=== PATIENT | female | born 1940 | race Caucasian/White ===

== ENCOUNTER → 2016-06-03 | Outpatient (CLI) | payer OTHER ==
[~2016-06-03] MED LIST: CALCTAB7 PO; CHOL20009 PO; CIPR-255 PO; HYDR-5688 PO; LEVO75TA5 PO; MULT-513 PO; OMEG12006 PO; ONDA4TAB7 SL; S-AD1TAB6 PO
--- NOTE | 2016-06-03 15:22 | MAMMOGRAPHY REPORT ---
BILATERAL DIGITAL SCREENING MAMMOGRAM WITH CAD: 06/03/2016 TECHNIQUE: Current study was also evaluated with a Computer Aided Detection (CAD) system. Bilatera l CC and MLO views were obtained. COMPARISON: Comparison is made to exams dated: 06/02/2015 mammogram, 05/22/2013 mammogram, 05/15/2012 m ammogram, 05/10/2011 mammogram, 05/29/2014 mammogram, and 05/04/2010 mammogram - [facility] enter. BREAST COMPOSITION: The tissue of both breasts is heterogeneously dense, which may obscure small ma sses. FINDINGS: No suspicious masses, calcifications, or areas of architectural distortion are noted in e ither breast. There has been no significant interval change compared to prior exams. Again noted ar e scattered coarse benign appearing calcifications, some of which are associated with benign-appeari ng masses and are consistent with benign degenerating fibroadenomas. Benign-appearing mass in the r ight lower inner quadrant is stable. IMPRESSION: ACR BI-RADS CATEGORY 2: BENIGN There is no mammographic evidence of malignancy. A 1 year screening mammogram is recommended. The p atient will receive written notification of the results. Approximately 10% of breast cancers are not detected with mammography. A negative mammographic repor t should not delay biopsy if a clinically suggestive mass is present. Yolis Mares M.D. ah/:06/03/2016 12:48:13 Software Reliability Engineer: Madiha DYER)(Cassie), [facility] letter sent: Normal 1/2 BI-RADS Code: ACR BI-RADS Category 2: Benign
== END | disposition home or self-care (01) ==
LOC: C.MAMM 08:57
PROVIDERS: ATTEND Family Medicine
DX: Z12.31 Encounter for screening mammogram for malignant neoplasm of breast (principal)

== ENCOUNTER → 2017-06-05 | Outpatient (CLI) | payer OTHER ==
--- NOTE | 2017-06-06 13:28 | MAMMOGRAPHY REPORT ---
BILATERAL DIGITAL SCREENING MAMMOGRAM TOMOSYNTHESIS WITH CAD: 06/05/2017 CLINICAL HISTORY: Routine screening examination. TECHNIQUE: Breast tomosynthesis in addition to standard 2D mammography was performed. Current study was also evaluated with a Computer Aided Detection (CAD) system. COMPARISON: Comparison is made to exams dated: 06/03/2016 mammogram, 06/02/2015 mammogram, 05/29/2014 dave mogram, 05/22/2013 mammogram, 05/15/2012 mammogram, and 05/10/2011 mammogram - [facility]. BREAST COMPOSITION: The tissue of both breasts is heterogeneously dense, which may obscure small mas ses. FINDINGS: There are bilateral benign masses, many of which have associated benign popcorn/coarse calc ification and most likely represent degenerating fibroadenomas. There are also stable groupings of b enign-appearing coarse heterogeneous calcifications in the breasts. No new suspicious mass, architec tural distortion or cluster of microcalcifications is seen. IMPRESSION: ACR BI-RADS CATEGORY 1: NEGATIVE There is no mammographic evidence of malignancy. A 1 year screening mammogram is recommended. The pa tient will receive written notification of the results. Approximately 10% of breast cancers are not detected with mammography. A negative mammographic report should not delay biopsy if a clinically suggestive mass is present. Safia Acuña M.D. ay/:06/05/2017 15:11:41 Grain Mixer: Iva DYER)(Cassie), [facility] letter sent: Normal 1/2 BI-RADS Code: ACR BI-RADS Category 1: Negative
== END | disposition home or self-care (01) ==
LOC: C.MAMM 09:06
PROVIDERS: ATTEND Family Medicine
DX: Z12.31 Encounter for screening mammogram for malignant neoplasm of breast (principal)

== ENCOUNTER → 2017-08-02 | Outpatient (CLI) | payer OTHER ==
--- NOTE | 2017-08-02 14:31 | DIAGNOSTIC IMAGING REPORT ---
LUMBAR SPINE RADIOGRAPHS, INCLUDING FLEXION AND EXTENSION CLINICAL HISTORY: Left sided sciatica. COMPARISON: Lumbar spine radiographs March 19, 2014. FINDINGS: Mild levoscoliosis of the lumbar spine has slightly increased since exam of March 19, 2014. There is moderate multilevel degenerative disc disease with disc space narrowing, osteophytosis and disc phenomenon. There is severe multilevel facet arthrosis. Slight retrolisthesis of T12 on L1 and L1 on L2 is noted with slight anterolisthesis of L5 on S1 which remains unchanged during flexion and extension. There is no evidence for instability on this exam. No fracture or suspicious lesion is present. There is apparent subchondral sclerosis within the left femoral head which raises the possibility of avascular necrosis. IMPRESSION: 1. No acute lumbar spine fracture or subluxation. 2. Mild levoscoliosis of the lumbar spine which has slightly increased since exam of March 19, 2014. 3. Moderate to severe multilevel degenerative disc disease and facet arthrosis. 4. No evidence for lumbar spine instability. 5. Possible avascular necrosis of the left femoral head. If persistent left hip pain, MRI could be obtained. Electronically signed by: Zay Fleming M.D. 08/02/2017 2:30 PM Dictated Date/Time: 08/02/2017 2:21 PM
== END | disposition home or self-care (01) ==
LOC: C.RAD 13:48
PROVIDERS: ATTEND Family Medicine
DX: M54.32 Sciatica, left side (principal); M51.36 Other intervertebral disc degeneration, lumbar region; M47.816 Spondylosis without myelopathy or radiculopathy, lumbar region

== ENCOUNTER → 2017-11-21 | Outpatient (CLI) | payer OTHER ==
[2017-11-21 09:53] LABS: BLOOD UREA NITROGEN 9 mg/dl (7-18); CREATININE 0.82 mg/dl (0.60-1.20)
--- NOTE | 2017-11-30 11:35 | CODING QUERY NO DIAGNOSIS ---
TREATMENT RENDERED WITHOUT A DIAGNOSIS To promote full compliance with coding requirements relating to patient care, physician participation is requested in all cases of reinforcing bar setter uncertainty. Please assist us with providing a diagnosis/symptom for the test(s) below: A diagnosis/symptom was not documented on your Order. A valid diagnosis/symptom is required to bill all insurances. Please remember that we are unable to code a diagnosis of rule out, probable, possible, questionable, or suspected. Tests that require a diagnosis: DOS: 11/21/17 (Attached order is missing diagnosis) * Blood Urea Nitrogen DIAGNOSIS: * Creatinine DIAGNOSIS: Provider Signature: Date: Thank you Scarlett Persaud Health Information Management Once completed, please kindly fax back to [phone] For questions please call [phone]
== END | disposition home or self-care (01) ==
LOC: C.LAB 07:33
PROVIDERS: ATTEND Family Medicine
DX: Z13.89 Encounter for screening for other disorder (principal)

== ENCOUNTER → 2017-11-24 | Outpatient (CLI) | payer OTHER ==
[~2017-11-24] MED LIST changes: +GADAVIST IV PRN
--- NOTE | 2017-11-24 11:21 | DIAGNOSTIC IMAGING REPORT ---
LUMBAR SPINE COMBINATION CLINICAL HISTORY: 77 years-old Female with LUMBAR DISC DISEASE. Acute low back pain with radiation into the left lower extremity. History of remote back surgery. COMPARISON: Lumbar spine radiographs 08/02/2017, CT abdomen and pelvis 05/16/2014. TECHNIQUE: Multiplanar, multi sequence MRI of the lumbar spine was performed both with and without the use of 6.5 mL Gadavist. FINDINGS: The large togps-jr-hugk boiler attendant localizer images demonstrate no gross abnormality. There is approximately 17 degrees levoscoliosis of the lumbar spine measured from L1-L4. No gross abnormality identified within the abdomen, pelvis or soft tissues on the large [id number]-hd-[id number] boiler attendant localizer images. No aortic aneurysm. No pathologically enlarged lymph nodes identified. A 1.8 cm T1 and T2 hyperintense lesion about the T11 vertebral body suggests hemangioma. There is no acute fracture, subluxation or significant focal bone marrow edema. Mild bone marrow edema is noted about the left pedicle at L5 which may be reactive. No sacral insufficiency fracture identified on this study. Multilevel intervertebral disc space narrowing with advanced facet arthropathy, ligamentum flavum thickening and annular disc bulging. No abnormal enhancement identified. T12-L1: Mild intervertebral disc space narrowing with spondylitic spurring and circumferential annular disc bulge. Moderate facet arthrosis. Flattening of the ventral thecal sac without significant central canal or foraminal narrowing as seen on the sagittal images alone. L1-L2: Moderate to severe intervertebral disc space narrowing with spondylitic spurring and circumferential annular disc bulge. Moderate facet arthrosis with ligamentum flavum thickening. There is flattening of the ventral thecal sac without significant central canal narrowing. There is moderate to severe right and mild to moderate left foraminal stenosis. L2-L3: Moderate intervertebral disc space narrowing with circumferential annular disc bulge, spondylitic spurring, moderate facet arthropathy with ligamentum flavum thickening. AP dimension of the thecal sac measures 8 mm. There is mild to moderate central canal, and moderate to severe right and mild to moderate left foraminal stenosis. L3-L4: Moderate intervertebral disc space narrowing with circumferential annular disc bulge, spondylitic spurring, moderate to severe facet arthropathy and ligamentum flavum thickening. Findings cause mild central canal, mild right and mild to moderate left foraminal stenosis. L4-L5: Severe intervertebral disc space narrowing with spondylitic spurring and circumferential annular disc bulge favoring the left foramen and far left lateral recess distribution. Severe facet arthropathy with ligamentum flavum thickening. Additionally, there is a suggested disc extrusion or sequestered disc fragment within the left lateral recess with mild adjacent peripheral enhancement as seen on image 24 series 10 which overall measures approximately 6 mm in craniocaudal dimension resulting in moderate to severe left lateral recess narrowing. This appears to abut the L5 nerve root. AP dimension of the thecal sac measures 4.5 mm. There is severe central canal and moderate bilateral foraminal narrowing. L5-S1: Moderate intervertebral disc space narrowing with spondylitic spurring and circumferential annular disc bulge. Advanced facet arthropathy with ligamentum flavum thickening. Flattening of the ventral thecal sac without significant central canal stenosis. There is moderate bilateral foraminal narrowing. IMPRESSION: 1. At L4-L5, circumferential annular disc bulge with severe facet arthropathy, spondylitic spurring and ligamentum flavum thickening is noted with a disc extrusion or sequestered disc fragment within the left lateral recess abutting the left L5 nerve root. These changes cause severe central canal, moderate to severe left lateral recess and moderate bilateral foraminal narrowing. 2. Mild to moderate central canal stenosis at L2-L3. 3. Multilevel foraminal narrowing as detailed above. The above report was generated using voice recognition software. It may contain grammatical, syntax or spelling errors. Dictated: 11/24/2017 10:17 AM Transcribed: 11/24/2017 11:21 AM [email or web address] Electronically signed by: Jb Wilde M.D. 11/24/2017 11:59 AM Dictated Date/Time: 11/24/2017 10:17 AM
== END | disposition home or self-care (01) ==
LOC: C.MRI 09:22
PROVIDERS: ATTEND Family Medicine
DX: M51.27 Other intervertebral disc displacement, lumbosacral region (principal)